=== PATIENT | female | born 1965 | race Asian ===

== ENCOUNTER 2019-09-20 21:48 | Inpatient (IN) | payer MEDICARE ==
[~2019-09-20] VITALS: Ht 165.1 cm; Wt 67.1 kg
[2019-09-20] MEDS ORDERED: CLONIDINE 0.2MG TABLET PO ONE (22:45)
[2019-09-20 23:36] LABS: BASOPHILS % 0.8 % (0.0-2.0); CHLORIDE 104 mEq/L (98-107); EOSINOPHILS % 3.5 % (0.0-5.0); HEMATOCRIT. 43.1 % (36.0-48.0); LYMPHOCYTES % 20.4 % (20.0-50.0); MEAN CORPUSCULAR HEMOGLOBIN 30.6 pg (28.0-32.0); MEAN CORPUSCULAR VOLUME 88.2 fL (81.0-99.0); MEAN PLATELET VOLUME 8.5 fl (7.4-10.4); MONOCYTES % 6.5 % (2.0-8.0); NEUTROPHILS % 68.8 % (40.0-76.0); PLATELET 280 x1000/uL (130-400); RED BLOOD CELL COUNT 4.88 mill/uL (4.2-5.4); RED CELL DISTRIBUTION WIDTH 12.6 % (11.6-14.6)
[2019-09-21] VITALS (9 sets, daily range): BP systolic 83–180; BP diastolic 57–106
[2019-09-21] MEDS ORDERED: LABETALOL 5MG/ML SYR 20 MG/4 ML SYRINGE IV ONE
[2019-09-21 01:38] LABS: CLARITY URINE CLEAR (CLEAR); COLOR URINE YELLOW (YELLOW); KETONES URINE NEGATIVE (NEGATIVE); LEUKOCYTE ESTERASE URINE TRACE (NEGATIVE); NITRITE URINE NEGATIVE (NEGATIVE); OCCULT BLOOD URINE NEGATIVE (NEGATIVE); PROTEIN URINE 1+ (NEGATIVE); SPECIFIC GRAVITY URINE 1.006 (1.005-1.030); UROBILINOGEN URINE 0.2 E.U./dL (0.2-1.0)
[2019-09-21 01:54] LABS: *AMPHETAMINES SCREEN URINE NEGATIVE (NEGATIVE); *BARBITURATES SCREEN URINE NEGATIVE (NEGATIVE); *BENZODIAZEPINES SCREEN URINE NEGATIVE (NEGATIVE); *COCAINE SCREEN URINE NEGATIVE (NEGATIVE); METHADONE URINE SCREEN NEGATIVE (NEGATIVE)
[2019-09-21 01:55] LABS: CANNABINOID URINE SCREEN NEGATIVE (NEGATIVE); OPIATES URINE SCREEN NEGATIVE (NEGATIVE); PHENCYCLIDINE URINE SCREEN NEGATIVE (NEGATIVE)
[2019-09-21] MEDS ORDERED: DIPHENHYDRAMINE 50MG/ML VIAL IV PRN (04:15)
[2019-09-21] MEDS ORDERED: ACETAMINOPHEN 325MG TABLET PO PRN ×3 (04:15→15:00)
[2019-09-21] MEDS ORDERED: POTASSIUM CHLORIDE 20MEQ TABLET SR PO SCH (04:30)
[2019-09-21] MEDS: METOPROLOL TARTRATE 50MG TABLET PO SCH ×3 (05:27→17:56)
[2019-09-21 11:28] LABS: BASOPHILS % 1.1 % (0.0-2.0); CHLORIDE 106 mEq/L (98-107); EOSINOPHILS % 2.6 % (0.0-5.0); HEMOGLOBIN. 13.8 g/dL (12.0-16.0); MEAN CORPUSCULAR HEMOGLOBIN 29.9 pg (28.0-32.0); MEAN CORPUSCULAR VOLUME 88.5 fL (81.0-99.0); MEAN PLATELET VOLUME 8.2 fl (7.4-10.4); MONOCYTES % 6.2 % (2.0-8.0); NEUTROPHILS % 69.1 % (40.0-76.0); PLATELET 268 x1000/uL (130-400); RED BLOOD CELL COUNT 4.63 mill/uL (4.2-5.4)
[2019-09-21] MEDS ORDERED: ONDANSETRON HCL 4MG/2ML INJ IV PRN (15:00)
[2019-09-21] MEDS ORDERED: IPRATROPIUM/ALBUTEROL 0.5-3(2.5)MG/3ML NEB HHN PRN (15:00)
[2019-09-21] MEDS: ENOXAPARIN 40MG/0.4ML SYR SUBCUT SCH (16:07)
[2019-09-21 17:06] LABS: T4 FREE 0.85 ng/dL (0.76-1.46)
[2019-09-21] MEDS: HYDRALAZINE 20MG/ML VIAL IV PRN ×2 (18:04→22:02)
[2019-09-21] MEDS: HYDROCODONE/ACETAMINOPHEN 5/325MG TABLET PO PRN (21:49)
[2019-09-21 23:59] LABS: CREATINE KINASE MB FRACTION 2.1 ng/mL (0.5-3.6)
[2019-09-22 04:00] VITALS: BP 123/67
[2019-09-22] MEDS: METOPROLOL TARTRATE 50MG TABLET PO SCH ×3 (05:21→12:30)
[2019-09-22 07:43] LABS: BASOPHILS % 0.9 % (0.0-2.0); EOSINOPHILS % 2.3 % (0.0-5.0); HEMATOCRIT. 43.6 % (36.0-48.0); HEMOGLOBIN. 14.8 g/dL (12.0-16.0); MEAN CORPUSCULAR HEMOGLOBIN 30.1 pg (28.0-32.0); MEAN CORPUSCULAR VOLUME 88.8 fL (81.0-99.0); MEAN PLATELET VOLUME 8.5 fl (7.4-10.4); MONOCYTES % 6.5 % (2.0-8.0); NEUTROPHILS % 70.3 % (40.0-76.0); PLATELET 304 x1000/uL (130-400); RED BLOOD CELL COUNT 4.91 mill/uL (4.2-5.4); RED CELL DISTRIBUTION WIDTH 13.3 % (11.6-14.6)
[2019-09-22 07:45] LABS: CHLORIDE 105 mEq/L (98-107)
[2019-09-22 07:55] LABS: LDL CHOLESTEROL 242 mg/dL (5-100)
[2019-09-22 07:58] LABS: HDL CHOLESTEROL 40 mg/dL (40-59)
[2019-09-22 08:00] VITALS: BP 125/78
[2019-09-22 08:09] LABS: CREATINE KINASE MB FRACTION 1.6 ng/mL (0.5-3.6)
[2019-09-22] MEDS ORDERED: ASPIRIN 81MG EC TABLET PO SCH (09:00)
[2019-09-22] MEDS: HYDROCODONE/ACETAMINOPHEN 5/325MG TABLET PO PRN (09:11)
[2019-09-22 09:30] VITALS: BP 125/68
[2019-09-22] MEDS ORDERED: LIP40 MT (13:56)
[2019-09-22] MEDS ORDERED: LEVO50TA MT (13:56)
[2019-09-22] MEDS ORDERED: AMLO10TA80 MT (13:56)
[2019-09-22 14:00] VITALS: BP 150/93
[2019-09-22] MEDS: ENOXAPARIN 40MG/0.4ML SYR SUBCUT SCH (15:11)
[2019-09-22 15:59] VITALS: BP 127/61
[2019-09-22] MEDS ORDERED: ATORVASTATIN CALCIUM 40MG TABLET PO SCH (21:00)
[2019-09-23] MEDS ORDERED: LEVOTHYROXINE SODIUM 50MCG TABLET PO SCH (07:30)
[2019-09-27 17:06] LABS: 5-HIAA 24 HOUR URINE 4.4 mg/24 hr (0.0-14.9); 5-HIAA URINE 1.5 mg/L (Undefined)
== END 2019-09-22 17:12 | disposition home or self-care (01) | DRG 199 ==
LOC: ER 21:48 → 5EST 09-21 01:00 → EDBEDREQ 09-21 01:07 → ENRESERV 09-21 03:24
PROVIDERS: ADMIT Internal Medicine; ATTEND Internal Medicine
DX: I16.0 Hypertensive urgency (principal); E87.2 Acidosis; E03.9 Hypothyroidism, unspecified; E78.5 Hyperlipidemia, unspecified; E87.6 Hypokalemia; R00.0 Tachycardia, unspecified; F41.9 Anxiety disorder, unspecified; I10 Essential (primary) hypertension; Z91.14 Patient's other noncompliance with medication regimen; Z79.1 Long term (current) use of non-steroidal anti-inflammatories (NSAID); Z79.51 Long term (current) use of inhaled steroids; Z79.899 Other long term (current) drug therapy
CPT/HCPCS: 36415; 71045; 78582; 80048; 80053; 80061; 80305; 81003; 82553; 83036; 83497; 83605; 83880; 84439; 84443; 84484; 85025; 85379; 93005; 93306; 93880; 99291; A9558; J0360; J1200; J1650; J3490